=== PATIENT | female | born 1960 | race Two or more races ===

== ENCOUNTER 2018-01-03 06:10 | Day surgery (SDC) | payer OTHER ==
[~2018-01-03 06:10] MED LIST: ASA81 MG PO; ENALAPRIL MALEA20 MG PO; LOSARTAN-HCTZ1 EAC1 PO
== END 2018-01-03 14:35 | disposition home or self-care (01) ==
LOC: CIR.AMB 06:10
DX: G56.02 Carpal tunnel syndrome, left upper limb (principal); M65.332 Trigger finger, left middle finger

== ENCOUNTER 2018-05-16 07:00 | Day surgery (SDC) | payer OTHER ==
[~2018-05-16 07:00] MED LIST changes: +HYZAAR 100-251 EACH PO; +NORVA PO; +TOPROL XL50 M1 PO
== END 2018-05-16 14:55 | disposition home or self-care (01) ==
LOC: CIR.AMB 07:00
DX: M65.312 Trigger thumb, left thumb (principal)

== ENCOUNTER 2019-03-27 05:26 | Day surgery (SDC) | payer OTHER ==
[~2019-03-27 05:26] MED LIST changes: +FORTAMET500 MG; -NORVA PO; +NORVASC PO
== END 2019-03-27 09:50 | disposition home or self-care (01) ==
LOC: CIR.AMB 05:26
DX: M65.342 Trigger finger, left ring finger (principal)

== ENCOUNTER 2020-03-14 15:24 | Emergency (ER) | payer OTHER ==
[~2020-03-14] VITALS: Ht 165.1 cm; Wt 106.6 kg
== END 2020-03-14 19:29 | disposition home or self-care (01) ==
LOC: ER 15:24
DX: R42 Dizziness and giddiness (principal)

== ENCOUNTER 2020-03-17 14:48 | Emergency (ER) | payer OTHER ==
[~2020-03-17] VITALS: Ht 167.6 cm; Wt 108.0 kg
== END 2020-03-17 20:30 | disposition home or self-care (01) ==
LOC: ER 14:48
DX: K59.09 Other constipation (principal)